=== PATIENT | male | born 1990 | race Hispanic/Latino ===

== ENCOUNTER 2016-08-02 10:38 | Emergency (ER) | payer OTHER ==
[2016-08-02] MEDS ORDERED: TORADOL ONE (11:00)
[2016-08-02] MEDS ORDERED: TORADOL IV ONE (11:02)
[2016-08-02] MEDS ORDERED: ZOFRAN IV ONE (11:02)
[2016-08-02] MEDS ORDERED: ANCEF/NS 1 GM/50 ML 1 GM/50 ML BAG IV ONE (11:02)
[2016-08-02] MEDS ORDERED: NACL 0.9% 1,000 ML IR ONE (11:02)
[2016-08-02] MEDS ORDERED: NACL 0.9% 500 ML IR ONE (11:03)
[2016-08-02] MEDS ORDERED: NACL 0.9% IR ONE (11:06)
[2016-08-02] MEDS ORDERED: DILAUDID ONE (11:17)
[2016-08-02] MEDS ORDERED: DILAUDID IV ONE ×3 (11:19→12:33)
--- NOTE | 2016-08-02 11:29 | Emergency Department Report ---
ED Upper Extremity Inj HPI - General Chief Complaint: Extremity Injury, Upper Stated Complaint: LAC TO FINGER Time Seen by Provider: 08/02/16 10:55 Source: patient Mode of arrival: Ambulatory Limitations: No Limitations - History of Present Illness Initial Comments: Chief complaint: Right middle finger injury. HPI: 26-year-old male witha past medical history presents to the hospital complaining of crush injury to right middle finger. A car lift fell on his finger causing a partial amputation. Tetanus up-to-date. Patient is hesitant to receive narcotics he has a history of drug abuse and was told he could not take any narcotic pain medication due to court appearance. Right hand dominant Mode of arrival: [ private car] Source: [Patient] Began: Prior to arrival Duration: Continuous Context: Car lift Quality: Throbbing Severity: 10out of 10 Improved with: Nothing Worsened with: Movement and palpation Associated signs and symptoms: Associated nausea - Related Data Home Medications Medication Instructions Recorded Confirmed Last Taken No Known Home Medications [No 08/02/16 08/02/16 Unknown Reported Home Medications] Allergies Allergy/AdvReac Type Severity Reaction Status Date / Time iodine Allergy Hives Verified 08/02/16 10:46 ED Review of Systems ROS: Stated complaint: LAC TO FINGER Other details as noted in HPI Comment: All other systems reviewed and negative Other: Constitutional: No fevers chills Eyes: No eye pain visual changes ENT: No ear pain or throat pain Neck: Denies pain Respiratory: Denies cough wheezing shortness of breath Cardiovascular: Denies chest pain, palpitations, syncope GI: Denies abdominal pain, vomiting Musculoskeletal: As per HPI Skin: As per HPI Neurologic: Denies headache, numbness, weakness Psychiatric: Denies suicidal ideation, hallucinations ED Past Medical Hx - Past Medical History Previous Medical History?: Yes Additional medical history: drug abuse - Surgical History Past Surgical History?: Yes Additional Surgical History: Left ear surgery - Social History Smoking Status: Current Every Day Smoker Substance Use Type: None - Medications Home Medications: Home Medications Medication Instructions Recorded Confirmed Last Taken Type No Known Home Medications [No 08/02/16 08/02/16 Unknown History Reported Home Medications] ED Physical Exam - General Limitations: No Limitations - Other Other exam information: General: No limitations, patient is alert in no acute distress Head exam: Atraumatic, normocephalic Eyes exam: Normal appearance, pupils equal reactive to light, extraocular movements intact ENT: Moist mucous membrane, normal oropharynx Neck exam: Normal inspection, full range of motion, no meningismus nontender Respiratory exam: Clear to auscultation bilateral, no wheezes, rales, crackles Cardiovascular: Normal rate and rhythm, normal heart sounds Abdomen: Soft, nondistended, and nontender, with normal bowel sounds, no rebound, or guarding Extremity: Crush injury with deformity to right middle finger with distal portion of the pulp and partially attached. Fingernail is unknown missing. Positive bone exposure on the palmar surface of the finger. Soiled fingers Back: Normal Inspection, full range of motion, no tenderness Neurologic: Alert, oriented x3, cranial nerves intact, no motor or sensory deficit Psychiatric: normal affect, normal mood Skin: Warm, dry, intact ED Course Vital Signs 08/02/16 08/02/16 10:47 11:50 Temperature 98.9 F Pulse Rate 84 67 Respiratory 20 16 Rate Blood Pressure 150/111 Blood Pressure 146/102 [Left] O2 Sat by Pulse 98 99 Oximetry - Reevaluation(s) Reevaluation #1: 08/02/16 11:29 meds: toradalyn britt ancef Pt got approval for narcotics therefore dilaudid ordered Pt allergic to iodine, NS irrigation ordered 08/02/16 12:33 After draining to receive narcotic medication patient has received repeated doses of Dilaudid 1 mg total and 3 mg with no sedation and continued pain. Suspect the patient has a high tolerance given previous history of substance abuse - Consultations Consultation #1: 08/02/16 12:[address] Bryant (plastics) at [facility] for transfer to the ER ED Medical Decision Making - Radiology Data Radiology results: report reviewed Right hand x-ray: Partial soft tissue bony O the distal third digit. Fracture distal phalanx, third digit - Medical Decision Making Patient medicated here in the ED. Except for transfer to [facility] ED to be seen by the hand service. BP noticed to be elevated Jw suspect secondary to pain - Differential Diagnosis fxt, avulsion Critical Care Time: No Critical care attestation.: If time is entered above; I have spent that time in minutes in the direct care of this critically ill patient, excluding procedure time. ED Disposition Clinical Impression: Finger amputation, traumatic Qualifiers: Encounter type: initial encounter Qualified Code(s): S68.119A - Complete traumatic metacarpophalangeal amputation of unspecified finger, initial encounter Phalanx, distal fracture of finger Qualifiers: Encounter type: initial encounter Finger: middle finger Fracture type: open Fracture alignment: nondisplaced Laterality: right Qualified Code(s): S62.662B - Nondisplaced fracture of distal phalanx of right middle finger, initial encounter for open fracture Disposition: DC/TX-70 ANOTHER TYPE HLTHCARE Is pt being admited?: No Does the pt Need Aspirin: No Time of Disposition: 12:30 (accepted by [facility] for transfer to [facility] ED)
--- NOTE | 2016-08-02 11:50 | XRay Report ---
RIGHT FINGERS, 3 VIEWS HISTORY: Right middle finger crush injury, pain. FINDINGS: No comparison. There is partial soft tissue and bony amputation of the distal phalanx of the third digit. There is also a transverse mildly displaced fracture through the mid portions of the distal phalanx. No obvious soft tissue foreign body. The remaining bony structures and joint spaces are unremarkable. IMPRESSION: Partial soft tissue and bony amputation of the distal third digit. Fracture of the distal phalanx, third digit.
[2016-08-02] MEDS ORDERED: NACL 0.9% 1,500 ML IR ONE (13:08)
[2016-08-02 13:32] VITALS: BP 125/70
== END 2016-08-02 14:05 | disposition other institution (70) ==
LOC: ED 10:38
DX: S68.112A Complete traumatic metacarpophalangeal amputation of right middle finger, initial encounter (principal); S62.662B Nondisplaced fracture of distal phalanx of right middle finger, initial encounter for open fracture; F17.200 Nicotine dependence, unspecified, uncomplicated; Z88.8 Allergy status to other drugs, medicaments and biological substances; W23.0XXA Caught, crushed, jammed, or pinched between moving objects, initial encounter; Y93.89 Activity, other specified; Y99.8 Other external cause status; Y92.89 Other specified places as the place of occurrence of the external cause
CPT/HCPCS: 73140; 96365; 96375; 96376; 99285; J0690; J1170; J1885; J2405